=== PATIENT | female | born 1965 | race Caucasian/White ===

== ENCOUNTER → 2022-12-03 14:56 | Outpatient (CLI) | payer MEDICAID, SELFPAY ==
--- NOTE | 2022-12-03 | DI.RAD_ITS ---
Exam(s) XR WRIST RT COMPL NAVICULAR EXAM: XR WRIST RT COMPL NAVICULAR CLINICAL HISTORY: RT WRIST PAIN, M25.531, FOOSH INJURY, CONCERNING FOR FRACTURE. TECHNIQUE: 2D digital imaging was performed of the right wrist. Four views were obtained. Scaphoid, PA, lateral and oblique views were obtained. COMPARISON: No exams were available for comparison FINDINGS: BONES: There is an acute nondisplaced fracture through the distal metaphysis of the right radius. Th ere is a nondisplaced fracture of the ulnar styloid process. No bony destructive lesion is seen. JOINTS: The carpal bones are normally aligned. SOFT TISSUE: Normal. IMPRESSION: 1. Nondisplaced distal radial metaphyseal fracture. 2. Nondisplaced ulnar styloid process fracture. DATA REPOSITORY: RADIATION DOSE DELIVERED:
== END ==
PROVIDERS: PCP Family Medicine; Visit Provider Physician Assistant Medical
DX: S52.615A Nondisplaced fracture of left ulna styloid process, initial encounter for closed fracture (principal); S52.325A Nondisplaced transverse fracture of shaft of left radius, initial encounter for closed fracture; X58.XXXA Exposure to other specified factors, initial encounter
CPT/HCPCS: 73110

== ENCOUNTER 2023-07-14 20:33 | Outpatient (REF) | payer MEDICAID, SELFPAY | END 2023-07-14 20:34 | disposition home or self-care (01) | LOC: LBN 20:33 | PROVIDERS: PCP Family Medicine; Visit Provider Physician Assistant Medical | DX: J02.9 Acute pharyngitis, unspecified (principal) | CPT/HCPCS: 87070 ==